=== PATIENT | female | born 1945 | race American Indian/Alaskan Native ===

== ENCOUNTER 2017-04-18 11:12 | Outpatient (CLI) | payer MEDICARE ==
[2017-04-18 10:25] LABS: Hematocrit 34.1 % (30.3-42.9); Hemoglobin 10.9 gm/dl (10.1-14.3); Mean Corpuscular HGB Conc 32 % (30-34); Mean Corpuscular Hemoglobin 27 pg (28-32); Mean Corpuscular Volume 84 fl (79-97); Platelet Count 190 K/mm3 (140-440); Red Blood Count 4.08 M/mm3 (3.65-5.03); Red Cell Distribution Width 15.2 % (13.2-15.2); White Blood Count 5.3 K/mm3 (4.5-11.0)
[2017-04-18 10:47] LABS: Alanine Aminotransferase < 5 units/L (7-56); Albumin 3.6 g/dL (3.9-5); Albumin/Globulin Ratio 1.1 %; Alkaline Phosphatase 66 units/L (35-129); Anion Gap 16 mmol/L; BUN/Creatinine Ratio 14.44; Blood Urea Nitrogen 13 mg/dL (7-17); Calcium 11.2 mg/dL (8.4-10.2); Carbon Dioxide 29 mmol/L (22-30); Chloride 100.8 mmol/L (98-107); Cholesterol 120 mg/dL (50-199); Glucose 186 mg/dL (65-100); HDL Cholesterol 43 mg/dL (40-59); LDL Cholesterol,Direct 60 mg/dL (50-130); Potassium 4.1 mmol/L (3.6-5.0); Sodium 142 mmol/L (137-145); Total Protein 6.8 g/dL (6.3-8.2); Triglycerides 89 mg/dL (2-149)
== END 2017-04-18 11:13 | disposition home or self-care (01) ==
LOC: LABHHL 11:12
PROVIDERS: ATTEND Internal Medicine
DX: E11.9 Type 2 diabetes mellitus without complications (principal); E31.9 Polyglandular dysfunction, unspecified; F32.9 Major depressive disorder, single episode, unspecified; R55 Syncope and collapse
CPT/HCPCS: 36415; 80053; 80061; 83036; 84439; 84443; 85027

== ENCOUNTER 2018-01-10 08:18 | Inpatient (IN) | payer MEDICARE ==
[2018-01-10] MEDS ORDERED: NACL 0.9% 500 ML 500 ML IV ONE (08:35)
[2018-01-10] MEDS ORDERED: TYLENOL FEEDTUBE STA (08:37)
[2018-01-10] MEDS ORDERED: NACL 0.9% 1000 ML 1,000 ML IV ONE ×3 (08:39→09:54)
[2018-01-10] MEDS ORDERED: TYLENOL PR ONE ×3 (08:40→08:54)
[2018-01-10] MEDS ORDERED: NACL 0.9% 1000 ML 1,000 ML ONE (08:40)
[2018-01-10] MEDS ORDERED: ZEMURON IV ONE ×2 (09:13→09:30)
[2018-01-10 09:27] LABS: Basophils % (Auto) 0.2 % (0.0-1.8); Eosinophils % (Auto) 0.1 % (0.0-4.3); Lymphocytes # (Auto) 1.7 K/mm3 (1.2-5.4); Lymphocytes % (Auto) 15.2 % (13.4-35.0); Mean Corpuscular HGB Conc 30 % (30-34); Mean Corpuscular Hemoglobin 27 pg (28-32); Mean Corpuscular Volume 89 fl (79-97); Monocytes # (Auto) 0.4 K/mm3 (0.0-0.8); Monocytes % (Auto) 3.7 % (0.0-7.3); Platelet Count 120 K/mm3 (140-440); Red Blood Count 4.66 M/mm3 (3.65-5.03); Red Cell Distribution Width 17.2 % (13.2-15.2)
[2018-01-10] MEDS: LEVOPHED DRIP 4 MG/NS 250 ML 4 MG/250 ML BAG IV SCH ×2 (09:35→14:41)
[2018-01-10] MEDS ORDERED: VASELINE LIP THERAPY TP PRN (09:38)
[2018-01-10] MEDS ORDERED: ARTIFICIAL TEARS OPHTH OINT OU PRN (09:38)
[2018-01-10 09:44] LABS: INR 1.64 (0.87-1.13)
[2018-01-10 09:49] LABS: Creatine Kinase MB 3.5 ng/mL (0.0-4.0)
[2018-01-10 09:50] LABS: Albumin 2.9 g/dL (3.9-5); Calcium 11.1 mg/dL (8.4-10.2)
[2018-01-10 09:51] LABS: Hematocrit 41.4 % (30.3-42.9); Hemoglobin 12.5 gm/dl (10.1-14.3)
[2018-01-10] MEDS ORDERED: LEVAQUIN 750MG/150ML 750 MG/150 ML BAG IV ONE (09:56)
[2018-01-10] MEDS ORDERED: NEO-SYNEPHRINE 100 MG in NACL 0.9% 90 ML IV SCH (10:00)
[2018-01-10] MEDS ORDERED: NACL 0.9% 500 ML IV SCH (10:00)
[2018-01-10 10:01] LABS: Bacteria,Urine 2+ /HPF (Negative); Bilirubin,Urine NEG (Negative); Blood,Urine NEG (Negative); Color,Urine Yellow (Yellow); Hyaline Casts,Urine 1 /LPF; Mucus,Urine FEW /HPF; Protein,Urine <15 mg/dL mg/dL (Negative); Urobilinogen,Urine < 2.0 mg/dL (<2.0)
[2018-01-10] MEDS ORDERED: ADRENALIN 8 MG in NACL 0.9% 250ML 242 ML IV ONE (10:09)
[2018-01-10] MEDS ORDERED: HumuLIN R IV ONE (10:20)
[2018-01-10 11:08] LABS: Chol/HDL Ratio 4.93 %
--- NOTE | 2018-01-10 11:15 | History and Physical Report ---
History of Present Illness Chief complaint: Confusion History of present illness: 72 YO Female SNF Resident with HTN,Systolic CHF, DM, Dementia, Depression, Sacral Decubitus Ulcers, CVA, Malnutrition, HLD presents to ED for evaluation. Pt in stuporous and unable to provide history. Pt history taken from ED staff, EMS, and SNF staff. As per SNF staff, the patient was found to be more confused as well as unresponsive this morning. EMS was notified, and upon arrival the patient was found to be tachycardic, and hyperglycemic. Pt transported to [facility] for evaluation. Pt seen and evaluated in ED and found to have sepsis secondary to Pneumonia as well as Acute REspiratory Failure. . Pt experienced asystolic arrest in the ED. Pt treated [facility] ACLS protocol with return of perfusing cardiac rhythm. Pt intubated and placed on vent support and admitted to ICU. Pt found to have a poor prognosis. Family meeting held, and patient family elects to have comfort measures [facility] care. Hospice team notified in ED. Past History Past Medical History: CAD, diabetes, heart failure, renal failure Past Surgical History: Other (Pacemaker, PEG) Social history: . denies: smoking, alcohol abuse, prescription drug abuse Family history: diabetes, hypertension Medications and Allergies Allergies Allergy/AdvReac Type Severity Reaction Status Date / Time amoxicillin Allergy Hives Verified 12/28/17 15:21 gluten Allergy Hives Verified 12/28/17 15:21 peanut Allergy Hives Verified 12/28/17 15:21 Home Medications Medication Instructions Recorded Confirmed Last Taken Type ISOSORBIDE MONOnitrate [Imdur ER] 30 mg PO DAILY tablet 01/03/18 01/10/18 Unknown Rx hydrALAZINE [Apresoline TAB] 25 mg PO Q8HR #90 tablet 01/03/18 01/10/18 Unknown Rx ALBUTEROL NEB's [Proventil] 2.5 mg IH Q6H PRN 01/10/18 01/10/18 Unknown History Atorvastatin Calcium [Lipitor] 20 mg PO HS 01/10/18 01/10/18 Unknown History Carvedilol [Coreg] 50 mg PO BID 01/10/18 01/10/18 Unknown History Clopidogrel Bisulfate [Plavix] 75 mg PO QDAY 01/10/18 01/10/18 Unknown History Lisinopril [Zestril] 40 mg PO QDAY 01/10/18 01/10/18 Unknown History Active Meds: Active Medications Hydrophilic Ointment (Vaseline Lip Therapy) 1 applic TP Q2HR PRN PRN Reason: Dry Lips Norepinephrine (Levophed Drip 4 Mg/Ns 250 Ml) 4 mg in 250 mls @ 7.5 mls/hr IV TITR DANIEL; Protocol Last Titration: 01/10/18 09:50 Dose: 30 mcg/min, 112.5 mls/hr Phenylephrine HCl 100 mg/ (Sodium Chloride) 100 mls @ 3 mls/hr IV TITR DANIEL; Protocol Last Titration: 01/10/18 10:52 Dose: 70 mcg/min, 4.2 mls/hr Levofloxacin/Dextrose (Levaquin 750mg/150ml) 750 mg in 150 mls @ 100 mls/hr IV ONCE ONE Stop: 01/10/18 11:25 Last Admin: 01/10/18 10:15 Dose: 100 mls/hr Epinephrine 8 mg/ Sodium (Chloride) 250 mls @ 3.75 mls/hr IV TITR ONE; Protocol Stop: 01/13/18 04:48 Last Admin: 01/10/18 10:25 Dose: 10 mcg/min, 18.75 mls/hr Multi-Ingred Cream/Lotion/Oil/Oint (Artificial Tears Ophth Oint) 1 applic OU Q4HR PRN PRN Reason: Dry Eye(s) Sodium Chloride (Nacl 0.9% 500 Ml) 1 ml IV DIRECT DANIEL Review of Systems ROS unobtainable: due to mental status Exam - Constitutional Vitals: Temp Pulse Resp BP Pulse Ox 104.5 F H 70 20 64/37 100 01/10/18 08:32 01/10/18 10:50 01/10/18 10:50 01/10/18 10:50 01/10/18 10:10 General appearance: Present: severe distress - EENT Eyes: Present: miosis ENT: poor dentition - Neck Neck: Present: supple, normal ROM - Respiratory Respiratory: bilateral: diminished, rhonchi - Cardiovascular Rhythm: irregularly irregular - Extremities Extremities: pulses symmetrical, No edema Extremity abnormal: edema Peripheral Pulses: abnormal (capillary refill greater than 3.6 seconds.) - Abdominal General gastrointestinal: Present: soft, non-distended, hypoactive bowel sounds Female genitourinary: Present: normal - Integumentary Integumentary: Present: clear, dry, clammy, decreased turgor - Musculoskeletal Musculoskeletal: generalized weakness - Psychiatric Psychiatric: no intact judgment & insight, no memory intact - Neurologic Neurologic: no gait normal Results - Labs CBC & Chem 7: 01/10/18 09:14 01/10/18 09:14 Labs: Abnormal lab results 01/10/18 01/10/18 01/10/18 Range/Units 08:35 09:12 09:14 MCH 27 L (28-32) pg RDW 17.2 H (13.2-15.2) % Plt Count 120 L (140-440) K/mm3 Seg Neutrophils % 80.8 H (40.0-70.0) % Seg Neutrophils # 8.8 H (1.8-7.7) K/mm3 PT 20.4 H (12.2-14.9) Sec. INR 1.64 H (0.87-1.13) VBG pH (7.320-7.420) Sodium (137-145) mmol/L Chloride (98-107) mmol/L Carbon Dioxide (22-30) mmol/L BUN (7-17) mg/dL Creatinine (0.7-1.2) mg/dL Glucose (65-100) mg/dL POC Glucose (70-105) Lactic Acid (0.7-2.0) mmol/L Calcium (8.4-10.2) mg/dL AST (5-40) units/L ALT (7-56) units/L Troponin T (0.00-0.029) ng/mL Albumin (3.9-5) g/dL Triglycerides (2-149) mg/dL HDL Cholesterol (40-59) mg/dL Urine WBC (Auto) 27.0 H (0.0-6.0) /HPF 01/10/18 01/10/18 01/10/18 Range/Units 09:14 09:14 09:14 MCH (28-32) pg RDW (13.2-15.2) % Plt Count (140-440) K/mm3 Seg Neutrophils % (40.0-70.0) % Seg Neutrophils # (1.8-7.7) K/mm3 PT (12.2-14.9) Sec. INR (0.87-1.13) VBG pH 7.302 L (7.320-7.420) Sodium 169 H* (137-145) mmol/L Chloride 125.0 H (98-107) mmol/L Carbon Dioxide 21 L (22-30) mmol/L BUN 92 H (7-17) mg/dL Creatinine 4.1 H (0.7-1.2) mg/dL Glucose 446 H (65-100) mg/dL POC Glucose (70-105) Lactic Acid 5.40 H* (0.7-2.0) mmol/L Calcium 11.1 H (8.4-10.2) mg/dL AST 127 H (5-40) units/L ALT 89 H (7-56) units/L Troponin T (0.00-0.029) ng/mL Albumin 2.9 L (3.9-5) g/dL Triglycerides (2-149) mg/dL HDL Cholesterol (40-59) mg/dL Urine WBC (Auto) (0.0-6.0) /HPF 01/10/18 01/10/18 Range/Units 09:14 09:32 MCH (28-32) pg RDW (13.2-15.2) % Plt Count (140-440) K/mm3 Seg Neutrophils % (40.0-70.0) % Seg Neutrophils # (1.8-7.7) K/mm3 PT (12.2-14.9) Sec. INR (0.87-1.13) VBG pH (7.320-7.420) Sodium (137-145) mmol/L Chloride (98-107) mmol/L Carbon Dioxide (22-30) mmol/L BUN (7-17) mg/dL Creatinine (0.7-1.2) mg/dL Glucose (65-100) mg/dL POC Glucose 365 H (70-105) Lactic Acid (0.7-2.0) mmol/L Calcium (8.4-10.2) mg/dL AST (5-40) units/L ALT (7-56) units/L Troponin T 0.701 H* (0.00-0.029) ng/mL Albumin (3.9-5) g/dL Triglycerides 236 H (2-149) mg/dL HDL Cholesterol 29 L (40-59) mg/dL Urine WBC (Auto) (0.0-6.0) /HPF Assessment and Plan - Patient Problems (1) Septic shock Current Visit: Yes Status: Acute Plan to address problem: IV antibiotics, IV pressor support to maintain MAP of 60, Monitor uop q shift, serial lactic acid, CBC, CMP, blood cultures, urinalysis, Admit to ICU. After family meeting, Pt family elects to initiate comfort care measures, and transfer the patient to inpatient hospice care. The high probability of a clinically significant, sudden or life threatening deterioration of the [cardaic, renal, pulmonary, ] system(s) required my full and direct attention, intervention and personal management. The aggregate critical care time was [65] minutes. This time is in addition to time spent performing reported procedures but includes the following: [x] Data Review and interpretation [x] Patient assessment and monitoring of vital signs [x] Documentation [x] Medication orders and management (2) Respiratory failure Current Visit: Yes Status: Acute Qualifiers: Chronicity: acute Respiratory failure complication: hypoxia Qualified Code(s): J96.01 - Acute respiratory failure with hypoxia Plan to address problem: Wean vent as tolerated, Pulmonary consulted, daily ABG, sedation, holiday, (3) Pneumonia Current Visit: Yes Status: Acute Qualifiers: Pneumonia type: aspiration pneumonia Laterality: left Lung location: upper lobe of lung Plan to address problem: Suspected Aspiration Pneumonia: IV abx, nebulizer therapy, poor prognosis. Pt family elects to have hospice care. (4) Cardiac arrest Current Visit: Yes Status: Acute (5) ARF (acute renal failure) Current Visit: Yes Status: Acute Qualifiers: Acute renal failure type: with acute tubular necrosis Qualified Code(s): N17.0 - Acute kidney failure with tubular necrosis Plan to address problem: IVF resuscitation, monitor uop q shift, (6) DVT prophylaxis Current Visit: Yes Status: Acute
[2018-01-10] MEDS ORDERED: NACL 0.9% 1000 ML IV ONE (11:16)
[2018-01-10] MEDS ORDERED: SODIUM CHLORIDE FLUSH SYRINGE 10 ML IV PRN (11:16)
[2018-01-10] MEDS ORDERED: VANCOMYCIN VIAL IV ONE (11:16)
[2018-01-10] MEDS ORDERED: PROVENTIL IH PRN (11:16)
--- NOTE | 2018-01-10 11:16 | Emergency Department Report ---
HPI - General Chief Complaint: Arrhythmia/Palpitations Time Seen by Provider: 01/10/18 09:05 - HPI HPI: 72-year-old female presents to the emergency department by EMS from her ECF with complaint of altered mental status, tachycardia, fever. She has a past medical history of CHF, Alzheimer's dementia, sacral ulcers, previous CVA, diabetes, chronic kidney disease, cardiomyopathy with pacemaker, coronary artery disease. Allegedly the patient is usually verbal at baseline despite her dementia. At least since this morning the patient has been nonverbal and mostly unresponsive. EMS call stated that there was a 72-year- old female coming in with a heart rate of 180 and a blood sugar greater than 400. She did not receive any treatment in route. I asked for a EKG to be sent over and it showed the patient to be in atrial fibrillation with RVR. A. fib was not a condition previous listed on her ECF paperwork but her daughter has since come bedside and says that she does have some history of this atrial fibrillation. The patient herself is still currently altered and critically ill and therefore is a poor historian. ED Past Medical Hx - Past Medical History Hx Hypertension: Yes Hx CVA: Yes Hx Congestive Heart Failure: Yes Hx Diabetes: Yes Hx Renal Disease: Yes (CKD) Hx Psychiatric Treatment: Yes (alzheimers, depressive disorder,) Hx Dementia: Yes Additional medical history: dysphagia, pressure ulcer sacral region, protein, calorie malnutrition, ahterosclerotic heart disease, angina, cellulitis of abdominal wall, frequent UTI, MRSA anemia, hyperlipidema, - Surgical History Hx Pacemaker: Yes Additional Surgical History: s/p g tube removal - Social History Smoking Status: Unknown if ever smoked - Medications Home Medications: Home Medications Medication Instructions Recorded Confirmed Last Taken Type ISOSORBIDE MONOnitrate [Imdur ER] 30 mg PO DAILY tablet 01/03/18 01/10/18 Unknown Rx hydrALAZINE [Apresoline TAB] 25 mg PO Q8HR #90 tablet 01/03/18 01/10/18 Unknown Rx ALBUTEROL NEB's [Proventil] 2.5 mg IH Q6H PRN 01/10/18 01/10/18 Unknown History Atorvastatin Calcium [Lipitor] 20 mg PO HS 01/10/18 01/10/18 Unknown History Carvedilol [Coreg] 50 mg PO BID 01/10/18 01/10/18 Unknown History Clopidogrel Bisulfate [Plavix] 75 mg PO QDAY 01/10/18 01/10/18 Unknown History Lisinopril [Zestril] 40 mg PO QDAY 01/10/18 01/10/18 Unknown History ED Review of Systems ROS: Stated complaint: RAPID HEART RATE Other details as noted in HPI Comment: Unobtainable due to pts medical conditions Physical Exam - Physical Exam Vital Signs: Vital Signs 01/10/18 01/10/18 01/10/18 08:16 08:20 08:30 Temperature Pulse Rate 164 H 160 H 164 H Respiratory 40 H 41 H 41 H Rate Blood Pressure O2 Sat by Pulse 99 99 Oximetry 01/10/18 01/10/18 01/10/18 08:32 08:43 08:51 Temperature 104.5 F H Pulse Rate 163 H 179 H 185 H Respiratory 36 H 45 H 43 H Rate Blood Pressure 80/40 86/34 O2 Sat by Pulse 100 99 Oximetry 01/10/18 01/10/18 01/10/18 08:58 09:01 09:11 Temperature Pulse Rate 173 H 178 H 158 H Respiratory 41 H 18 Rate Blood Pressure 147/94 114/86 O2 Sat by Pulse 100 46 L Oximetry 01/10/18 01/10/18 01/10/18 09:21 09:30 09:35 Temperature Pulse Rate 114 H 112 H Respiratory 35 H 15 Rate Blood Pressure 95/23 183/110 115/55 O2 Sat by Pulse 100 99 99 Oximetry 01/10/18 01/10/18 01/10/18 09:41 09:51 10:01 Temperature Pulse Rate 71 63 64 Respiratory 20 20 101 H Rate Blood Pressure 62/42 51/20 114/26 O2 Sat by Pulse Oximetry 01/10/18 01/10/18 01/10/18 10:10 10:20 10:30 Temperature Pulse Rate 71 68 67 Respiratory 20 20 21 Rate Blood Pressure 113/42 47/28 58/34 O2 Sat by Pulse 100 Oximetry 01/10/18 01/10/18 10:41 10:50 Temperature Pulse Rate 72 70 Respiratory 20 20 Rate Blood Pressure 55/32 64/37 O2 Sat by Pulse Oximetry Physical Exam: GENERAL: Patient is ill-appearing and unresponsive. HENT: Normocephalic. Atraumatic. Patient has moist mucous membranes. EYES: Pupils equal reactive to light bilaterally. NECK: Supple. Trachea is midline. CHEST/LUNGS: Coarse breath sounds throughout the chest. There is tachypnea with some accessory muscle use. There is respiratory distress noted. HEART/CARDIOVASCULAR: Irregular rate with significant tachycardia ABDOMEN: Abdomen is soft.. Patient has normal bowel sounds. SKIN: Skin is warm and dry. NEURO: The patient is altered and unresponsive. She will move slightly to painful stimuli. She has a slight gag reflex. MUSCULOSKELETAL: There is no obvious deformity. There is no evidence of acute injury. ED Course Vital Signs 01/10/18 01/10/18 01/10/18 08:16 08:20 08:30 Temperature Pulse Rate 164 H 160 H 164 H Respiratory 40 H 41 H 41 H Rate Blood Pressure O2 Sat by Pulse 99 99 Oximetry 01/10/18 01/10/18 01/10/18 08:32 08:43 08:51 Temperature 104.5 F H Pulse Rate 163 H 179 H 185 H Respiratory 36 H 45 H 43 H Rate Blood Pressure 80/40 86/34 O2 Sat by Pulse 100 99 Oximetry 01/10/18 01/10/18 01/10/18 08:58 09:01 09:11 Temperature Pulse Rate 173 H 178 H 158 H Respiratory 41 H 18 Rate Blood Pressure 147/94 114/86 O2 Sat by Pulse 100 46 L Oximetry 01/10/18 01/10/18 01/10/18 09:21 09:30 09:35 Temperature Pulse Rate 114 H 112 H Respiratory 35 H 15 Rate Blood Pressure 95/23 183/110 115/55 O2 Sat by Pulse 100 99 99 Oximetry 01/10/18 01/10/18 01/10/18 09:41 09:51 10:01 Temperature Pulse Rate 71 63 64 Respiratory 20 20 101 H Rate Blood Pressure 62/42 51/20 114/26 O2 Sat by Pulse Oximetry 01/10/18 01/10/18 01/10/18 10:10 10:20 10:30 Temperature Pulse Rate 71 68 67 Respiratory 20 20 21 Rate Blood Pressure 113/42 47/28 58/34 O2 Sat by Pulse 100 Oximetry 01/10/18 01/10/18 10:41 10:50 Temperature Pulse Rate 72 70 Respiratory 20 20 Rate Blood Pressure 55/32 64/37 O2 Sat by Pulse Oximetry - Central Line Placement Right Femoral Consent Obtained: emergent situation Time Out Performed: Yes Patient Placed on Monitor/Pulse Ox: Yes MD Prep: mask, gown, gloves Central Line Prep: Povidone-Iodine 1%, Chlorhexidine scrub Ultrasound Used for Placement: Yes Central Line Lumen Inserted: triple Bloods Obtained for Lab: Yes Central Line Position: good blood return, all ports aspirated, flus, sutured in place with nyl Dressing Applied: Tegaderm Patient Tolerated Procedure: well Complications: none - Intubation Time Out Performed: Yes Sedative: none Paralytic: Rocuronium Mg Given: 80 Laryngoscope: Mathew Size: 3 ET Tube Size: 7.5 Tube Secured Depth (cm): 24 Tube Secured Location: lips Tube Placement Confirmation: visualized tube passing t, equal breath sounds bilat Patient Tolerated Procedure: well Intubation Complications: none ED Medical Decision Making - Lab Data Result diagrams: 01/10/18 09:14 01/10/18 09:14 - EKG Data -: EKG Interpreted by Me - EKG Data When compared to previous EKG there are: previous EKG unavailable Interpretation: other (sinus rhythm, IVCD RBBB, T-wave inversions throughout all leads) The EMS EKG shows atrial fibrillation with RVR at a rate of 180 01/10/18 14:45 - Radiology Data Radiology results: image reviewed interpreted by me: Chest x-ray shows appropriate position of the ET tube. No pneumothorax. There are some areas of patchy infiltrates concerning for pneumonia versus edema. - Medical Decision Making Patient presented to the emergency department in atrial fibrillation with RVR, with hyperglycemia, a temperature of 104, unresponsive and altered with some signs of respiratory distress. The patient also presented with significant hypoglycemia. A right femoral CVC was placed as the patient would need pressors and based on her critical condition and I expect that she would need multiple other medications given as well. Around the same time, the patient was intubated secondary to her coarse breath sounds, and signs of respiratory distress. There were no particular complications noted with these procedures. However, shortly afterwards the patient began having worsening hypotension and her pulses were no longer palpable and heart sounds could not be auscultated, and the patient appeared to go into PEA. ACLS protocol was started she received 5 total rounds of ACLS protocol including chest compressions, epinephrine, sodium bicarbonate, calcium, magnesium. In the middle of these 5 rounds, the patient appeared to go in polymorphic V. tach and one episode of V. fib. She received 2 different fibrillations at 200 J. The polymorphic V. tach had a torsades appearance so she was given the knees and as well. At the end of the fifth around, the patient had a return of spontaneous circulation. She was started on Levophed on top of the IV fluid resuscitation but her blood pressure still remained very low with a systolic in the 60s. It was about this time that the patient's daughter showed up and she was updated about everything that had been done thus far and her critical nature. Shortly after this, the patient once again appeared to lose her pulse and ACLS protocol was once again started. This time we are able to get a return of spontaneous circulation with and one round. The patient still is dealing with significant hypotension. Epinephrine drip arrived from the pharmacy and was started and he does appear to allow the patient to maintain some perfusion but she still has significant hypotension. She has already received 3 L of IV fluid and does have a history of CHF but appears currently septic. All of the lab and imaging results were discussed with the patient's family who have all gathered and are now currently bedside. They still have not made any decisions on CODE STATUS so for the time being the patient is a full code. The patient has been accepted for admission to the ICU by Dr. Foote. - Differential Diagnosis Sepsis, VA, Pneumonia, UTI, DKA Critical Care Time: Yes Critical care time in (mins) excluding proc time.: 80 Critical care attestation.: If time is entered above; I have spent that time in minutes in the direct care of this critically ill patient, excluding procedure time. Critical care time was spent on this patient during her initial evaluation, multiple re-evaluations , supervision of 2 different ACLS protocols/codes, ordering and interpretation of labs and imaging, titration and management of multiple antihypertensive drips , discussion with the patient's family, discussion with the admitting hospitalist. This does not include the procedure time to do a central line or intubation. Critical Care Time: 80 minutes ED Disposition Clinical Impression: Septic shock, Cardiac arrest, ED (acute kidney injury), Hyperglycemia, Lactic acidosis, Elevated troponin I level UTI (urinary tract infection) Qualifiers: Urinary tract infection type: acute cystitis Hematuria presence: without hematuria Qualified Code(s): N30.00 - Acute cystitis without hematuria Uncontrolled diabetes mellitus Qualifiers: Diabetes mellitus type: type 2 Diabetes mellitus oysterman insulin use: without halfway use Diabetes mellitus complication status: with hyperglycemia Qualified Code(s): E11.65 - Type 2 diabetes mellitus with hyperglycemia Hypotension Qualifiers: Hypotension type: unspecified hypotension type Qualified Code(s): I95.9 - Hypotension, unspecified Disposition: 09 OP ADMIT IP TO THIS HOSP Is pt being admited?: Yes Condition: Critical Time of Disposition: 14:55
--- NOTE | 2018-01-10 11:21 | XRay Report ---
Portable chest: ET tube position. The lungs are clear and mildly hyperlucent predominantly in the right side. There may be a small infiltrate in the left upper lobe. The heart is normal in size and there is no vascular congestion. A bipolar pacemaker is present. An endotracheal tube is in good position approximately 3 cm above the steve. No prior exam for comparison. Impression: 1. Well-positioned ET tube. 2. Chronic lung disease. 3. Possible left upper lobe pneumonia.
[2018-01-10] MEDS ORDERED: VANCOMYCIN PHARMACY TO DOSE IV SCH (12:00)
[2018-01-10] MEDS ORDERED: VANCOMYCIN 1,250 MG in NACL 0.9% 250ML 250 ML IV ONE (12:15)
--- NOTE | 2018-01-10 12:58 | Consultation ---
History of Present Illness Consult date: 01/10/18 Requesting physician: FERNANDO RUSSELL History of present illness: PULMONARY/CCM CONSULT NOTE (Full dictation # [id number]) Please see dictated notes for full details Medications and Allergies Allergies Allergy/AdvReac Type Severity Reaction Status Date / Time amoxicillin Allergy Hives Verified 12/28/17 15:21 gluten Allergy Hives Verified 12/28/17 15:21 peanut Allergy Hives Verified 12/28/17 15:21 Home Medications Medication Instructions Recorded Confirmed Last Taken Type ISOSORBIDE MONOnitrate [Imdur ER] 30 mg PO DAILY tablet 01/03/18 01/10/18 Unknown Rx hydrALAZINE [Apresoline TAB] 25 mg PO Q8HR #90 tablet 01/03/18 01/10/18 Unknown Rx ALBUTEROL NEB's [Proventil] 2.5 mg IH Q6H PRN 01/10/18 01/10/18 Unknown History Atorvastatin Calcium [Lipitor] 20 mg PO HS 01/10/18 01/10/18 Unknown History Carvedilol [Coreg] 50 mg PO BID 01/10/18 01/10/18 Unknown History Clopidogrel Bisulfate [Plavix] 75 mg PO QDAY 01/10/18 01/10/18 Unknown History Lisinopril [Zestril] 40 mg PO QDAY 01/10/18 01/10/18 Unknown History Active Meds: Active Medications Albuterol (Proventil) 2.5 mg IH Q3HRT PRN PRN Reason: Shortness Of Breath Hydrophilic Ointment (Vaseline Lip Therapy) 1 applic TP Q2HR PRN PRN Reason: Dry Lips Norepinephrine (Levophed Drip 4 Mg/Ns 250 Ml) 4 mg in 250 mls @ 7.5 mls/hr IV TITR DANIEL; Protocol Last Titration: 01/10/18 09:50 Dose: 30 mcg/min, 112.5 mls/hr Phenylephrine HCl 100 mg/ (Sodium Chloride) 100 mls @ 3 mls/hr IV TITR DANIEL; Protocol Last Titration: 01/10/18 10:52 Dose: 70 mcg/min, 4.2 mls/hr Epinephrine 8 mg/ Sodium (Chloride) 250 mls @ 3.75 mls/hr IV TITR ONE; Protocol Stop: 01/13/18 04:48 Last Admin: 01/10/18 10:25 Dose: 10 mcg/min, 18.75 mls/hr Levofloxacin/Dextrose (Levaquin 500mg/100ml) 500 mg in 100 mls @ 66.667 mls/hr IV Q48H DANIEL; Protocol Vancomycin HCl 1,250 mg/ (Sodium Chloride) 262.5 mls @ 131.25 mls/hr IV ONCE ONE Stop: 01/10/18 14:14 Last Admin: 01/10/18 12:45 Dose: 131.25 mls/hr Multi-Ingred Cream/Lotion/Oil/Oint (Artificial Tears Ophth Oint) 1 applic OU Q4HR PRN PRN Reason: Dry Eye(s) Sodium Chloride (Nacl 0.9% 500 Ml) 1 ml IV DIRECT DANIEL Sodium Chloride (Sodium Chloride Flush Syringe 10 Ml) 10 ml IV BID DANIEL Sodium Chloride (Sodium Chloride Flush Syringe 10 Ml) 10 ml IV PRN PRN PRN Reason: LINE FLUSH Vancomycin HCl (Vancomycin Pharmacy To Dose) 1 each IV PKCONSULT DANIEL Physical Examination Vital signs: Vital Signs Pulse Resp 164 H 40 H 01/10/18 08:16 01/10/18 08:16 Results - Laboratory Findings CBC and BMP: 01/10/18 09:14 01/10/18 09:14 PT/INR, D-dimer PT 20.4 Sec. (12.2-14.9) H 01/10/18 09:12 INR 1.64 (0.87-1.13) H 01/10/18 09:12 Abnormal lab findings: Abnormal Labs 01/10/18 01/10/18 01/10/18 08:35 09:12 09:14 MCH 27 L RDW 17.2 H Plt Count 120 L Seg Neutrophils % 80.8 H Seg Neutrophils # 8.8 H PT 20.4 H INR 1.64 H VBG pH Sodium Chloride Carbon Dioxide BUN Creatinine Glucose POC Glucose Lactic Acid Calcium AST ALT Troponin T NT-Pro-B Natriuret Pep Albumin Triglycerides HDL Cholesterol Urine WBC (Auto) 27.0 H 01/10/18 01/10/18 01/10/18 09:14 09:14 09:14 MCH RDW Plt Count Seg Neutrophils % Seg Neutrophils # PT INR VBG pH 7.302 L Sodium 169 H* Chloride 125.0 H Carbon Dioxide 21 L BUN 92 H Creatinine 4.1 H Glucose 446 H POC Glucose Lactic Acid 5.40 H* Calcium 11.1 H AST 127 H ALT 89 H Troponin T NT-Pro-B Natriuret Pep Albumin 2.9 L Triglycerides HDL Cholesterol Urine WBC (Auto) 01/10/18 01/10/18 01/10/18 09:14 09:32 10:43 MCH RDW Plt Count Seg Neutrophils % Seg Neutrophils # PT INR VBG pH Sodium Chloride Carbon Dioxide BUN Creatinine Glucose POC Glucose 365 H Lactic Acid 12.50 H* Calcium AST ALT Troponin T 0.701 H* NT-Pro-B Natriuret Pep 03436 H Albumin Triglycerides 236 H HDL Cholesterol 29 L Urine WBC (Auto) 01/10/18 11:00 MCH RDW Plt Count Seg Neutrophils % Seg Neutrophils # PT INR VBG pH Sodium Chloride Carbon Dioxide BUN Creatinine Glucose POC Glucose Lactic Acid 13.10 H* Calcium AST ALT Troponin T NT-Pro-B Natriuret Pep Albumin Triglycerides HDL Cholesterol Urine WBC (Auto)
[2018-01-10] MEDS ORDERED: NACL 0.9% 1000 ML 2,000 ML IV ONE (14:30)
--- NOTE | 2018-01-10 14:44 | Consultation ---
PULMONARY CRITICAL CARE CONSULT NOTE CONSULTING PHYSICIAN: Dr. Foote. REASON FOR CONSULTATION: Severe sepsis status post cardiac arrest. CHIEF COMPLAINT AND HISTORY OF PRESENT ILLNESS: The patient is a 72-year-old -[place] female with past medical history significant amongst other things for diagnoses of Alzheimer dementia, multiple sacral and other decubitus, who was brought into the Emergency Room with complaints of altered mental status, tachycardia, fever. She has significant baseline dementia. Upon initial arrival in the Emergency Room, the rhythm was atrial fibrillation with RVR which appears to be about new onset. Since getting into the Emergency Room, she has had multiple cardiac arrests. According to her nurse, about 3 cardiac arrests. We are asked to assist with her management. When I stopped by to see her, she was lying unresponsive on the mechanical ventilator. She was on multiple vasopressors. She was on I believe Levophed maxed out at 30 mcg per minute. She was on epinephrine drip at 10 mcg per minute and she was on Norman-Synephrine drip at 70 mcg per minute. Do not have any history of vomiting or overt aspiration. She is not a current smoker. No family is in the room at the moment. The above is as much of the history of presentation as I have. PAST MEDICAL HISTORY: Hypertension, cerebrovascular accident in the past, history of congestive heart failure, history of diabetes, history of chronic kidney disease, history of Alzheimer dementia. She has a history of oropharyngeal dysphagia, [id number] protein calorie malnutrition, prior cellulitis of the abdominal wall, history of multiple UTIs, and hyperlipidemia. PAST SURGICAL HISTORY: She has a pacemaker inserted. She had a G-tube that reportedly has been removed. MEDICATIONS: She was on at the time I stopped by to see her, according to the medication administration record included the following: Albuterol 2.5 mg nebulized q.3 hours p.r.n. She was on the vasopressors as mentioned above, Levaquin 500 mg IV q.48 hours. Vancomycin, she received 1.25 grams IV x 1. ALLERGIES: AMOXICILLIN, GLUTEN, PEANUTS. Nature of this allergy is unknown. DIET: Cachectic looking lady, acute weight loss or gain history is unknown. FAMILY AND SOCIAL HISTORY: At this point, it is unclear if the patient came from home or came from a alf. She is not a current smoker. No drinking. No illicit drug use or abuse. Remote history is unknown. REVIEW OF SYSTEMS: Unobtainable secondary to patient's medical and mental condition. Since she has been here, no gross hematochezia or melena, no gross hematuria, no bloody ET tube secretions. No witnessed seizures. Review of systems is otherwise unobtainable or as in the body of the history above. PHYSICAL EXAMINATION: VITAL SIGNS: At presentation in the Emergency Room, she had a temperature of 104.5 degrees Fahrenheit rectally, pulse of 164, respiratory rate of 40, blood pressure was 80/40, oxygen sats were 99%, inspired oxygen concentration was not recorded. GENERAL: Cachectic-looking, elderly-looking -[place] woman, looks her stated age, normocephalic, atraumatic with temporal wasting, intubated, mostly unresponsive. HEAD, EYES, EARS, NOSE AND THROAT: She is anicteric. No conjunctival erythema. Endotracheal tube is at the lips, taped at 22 cm at the lips. No thyromegaly, no gross jugular venous distention. She has temporal wasting. No palpable lymph nodes in the supraclavicular or submandibular lymph node chains. Oropharynx is dry. LUNGS: Auscultation of both lung díaz revealed scant rhonchi bilaterally, but good bilateral breath sounds, otherwise no wheezing. HEART: Heart sounds 1 and 2 are heard. They were regular in rate and rhythm at the time of my evaluation. No rubs or murmurs. ABDOMEN: Soft, flat. Bowel sounds are positive. Does not appear tender. It is scaphoid. EXTREMITIES: Without overt digital clubbing, cyanosis. No pedal edema. Dorsalis pedis pulses are weakly palpable bilaterally. SKIN: The skin is of poor turgor. She has a decubitus ulcer as mentioned above, otherwise no overt cellulitis that I can see. NEUROLOGIC: Pupils are equal, round, about 4 mm, sluggishly reactive to light. Extraocular muscle movements could not be observed. She was not exhibiting any spontaneous movements of her extremities at the time I saw her. LABORATORY AND IMAGING DATA: From my review are as follows: White cell count 10,900, hemoglobin 12.5, hematocrit 41.4, platelet count 120. No band forms. INR 1.64. Arterial blood gas showed a pH of 7.31, pCO2 of 35, pO2 of 512. That was on the assist control mode of ventilation, tidal volumes 450, rate of 18, PEEP of 5 on 100% FiO2. Serum sodium 169, potassium 4.0, chloride 125, bicarbonate 21, BUN was 92, creatinine 4.1, glucose 365. Lactic acid level 13.10. AST 127, ALT 89. Troponin was up at 0.70. BNP was elevated. Albumin was 2.9. Otherwise, liver function tests essentially as mentioned above. Urinalysis, large leukocyte esterase, 27 white cells per high power field. Blood cultures, no growth to date. Chest x-ray has been reviewed. I have also reviewed the radiologist's interpretation and I do agree with it. ET tube is in good position at the lower level of the clavicular head. There appears to be a left upper lobe infiltrate that might be a slowly developing. There may be implanted cardiac devices in the left upper anterior chest wall. No pneumothorax, no gross rib fractures that I can see. ASSESSMENT: 1. Severe sepsis with shock. 2. Acute respiratory failure, on mechanical ventilator support. 3. Acute on chronic encephalopathy. 4. Adult failure to thrive. 5. Severe lactic acidosis. 6. Hypernatremia. 7. Hyperglycemia or poorly controlled diabetes. 8. Elevated serum transaminases. 9. Acute coronary syndrome. 10. Iollcnds-cb-eppije protein calorie malnutrition. 11. Urinary tract infection. 12. Oropharyngeal dysphagia. PLAN: Continue current mechanical ventilatory settings, full AC support acutely. Aspiration precautions will be maintained. Ventilator-associated pneumonia bundle will be addressed daily. Bronchodilators will be scheduled in the short term p.r.n. thereafter. She is severely septic and will still benefit from further volume resuscitation, I will bolus her 1 liter of normal saline at this point and then running a second bag at 250 mL per hour. We will continue to wean vasopressors to keep mean arterial pressures greater than or equal to over 65 mmHg, especially in light of the renal failure, I will be introducing vasopressin and go ahead and try and wean off the other vasopressors. Magnesium and phosphorus levels will also be ordered. Nephrology evaluation will be in order. Glycemic control will be via sliding scale insulin acutely and then we will add long-acting insulin. She remains a full code at this point, the attending is discussing further care with the family. A CRP level will be ordered. I noted that we do not have significant leukocytosis. We will see what the CRP says and try and use this to deescalate antibiotics. Lactic acid levels will be trended. Enteral nutrition will be the feeding modality of choice, a feeding tube will be placed. Trickle feeding will be started. She will be also started on GI prophylaxis. DVT prophylaxis will also be introduced. Flu and pneumonia vaccination will be per protocol. Thank you very much for the consult. We will follow along and make further recommendations as picture progresses/becomes clearer. She is critically ill on life-sustaining interventions including mechanical ventilator support at high risk for further deterioration including . At this time, I have spent about 40-45 minutes of critical care time without overlap excluding any procedural time that may be necessary. JOB# [id number] SHARRI/TAMMY
[2018-01-10] MEDS ORDERED: SODIUM CHLORIDE FLUSH SYRINGE 10 ML IV SCH (22:00)
[2018-01-10] MEDS ORDERED: HEPARIN SUB-Q SCH (22:00)
--- NOTE | 2018-01-11 07:14 | Event Note ---
Date: 01/10/18 Pt discharged to [facility]osp[facility]. Awaiting transport.
--- NOTE | 2018-01-11 09:27 | XRay Report ---
AP CHEST :01/11/18 CLINICAL: Intubated.Follow up respiratory failure. COMPARISON:Previous day. FINDINGS: The endotracheal tube is in satisfactory position. Pacemaker leads in heart. The heart is normal size. Normal pulmonary vessels. The lungs are normally expanded and clear. Mild left upper lobe lung opacities appear to have resolved. However, the pacemaker obscures a portion of the left upper lobe. No pneumothorax. IMPRESSION: Interval improvement with resolution or near complete resolution of left upper lobe opacities.
[2018-01-11] MEDS ORDERED: PEPCID IV SCH (10:00)
[2018-01-11] MEDS ORDERED: LEVAQUIN 750MG/150ML 750 MG/150 ML BAG IV SCH (10:00)
[2018-01-11 10:48] VITALS: BP 115/78
[2018-01-12] MEDS ORDERED: LEVAQUIN 500MG/100ML 500 MG/100 ML BAG IV SCH (10:00)
[2018-01-12] MEDS ORDERED: CORDARONE IV ONE (10:48)
[2018-01-12] MEDS ORDERED: SODIUM BICARBONATE IV ONE (10:48)
[2018-01-12] MEDS ORDERED: ADRENALIN ONE (10:48)
[2018-01-12] MEDS ORDERED: MAGNESIUM SULFATE ONE (10:48)
[2018-01-12] MEDS ORDERED: CALCIUM CHLORIDE IV ONE (10:48)
== END 2018-01-11 11:41 | disposition hospice, inpatient (51) | DRG 871 ==
LOC: ED 08:18 → CC1 11:16
PROVIDERS: ADMIT Internal Medicine; ATTEND Internal Medicine
PROC: 4A033R1 Measurement of Arterial Saturation, Peripheral, Percutaneous Approach (ICD-10-PCS; principal; 2018-01-10)
PROC: 5A1945Z Respiratory Ventilation, 24-96 Consecutive Hours (ICD-10-PCS; 2018-01-10)
PROC: 0BH17EZ Insertion of Endotracheal Airway into Trachea, Via Natural or Artificial Opening (ICD-10-PCS; 2018-01-10)
PROC: 06HY33Z Insertion of Infusion Device into Lower Vein, Percutaneous Approach (ICD-10-PCS; 2018-01-10)
DX: A41.9 Sepsis, unspecified organism (principal); R65.21 Severe sepsis with septic shock; I46.9 Cardiac arrest, cause unspecified; J18.9 Pneumonia, unspecified organism; J96.00 Acute respiratory failure, unspecified whether with hypoxia or hypercapnia; G93.49 Other encephalopathy; E43 Unspecified severe protein-calorie malnutrition; N17.0 Acute kidney failure with tubular necrosis; I42.9 Cardiomyopathy, unspecified; N39.0 Urinary tract infection, site not specified; I50.20 Unspecified systolic (congestive) heart failure; E87.0 Hyperosmolality and hypernatremia; G30.9 Alzheimer's disease, unspecified; F02.80 Dementia in other diseases classified elsewhere, unspecified severity, without behavioral disturbance, psychotic disturbance, mood disturbance, and anxiety; E11.22 Type 2 diabetes mellitus with diabetic chronic kidney disease; I48.91 Unspecified atrial fibrillation; F32.9 Major depressive disorder, single episode, unspecified; E11.65 Type 2 diabetes mellitus with hyperglycemia; R13.12 Dysphagia, oropharyngeal phase; N18.9 Chronic kidney disease, unspecified; I25.10 Atherosclerotic heart disease of native coronary artery without angina pectoris; Z86.73 Personal history of transient ischemic attack (TIA), and cerebral infarction without residual deficits; Z95.0 Presence of cardiac pacemaker; Z87.440 Personal history of urinary (tract) infections; Z79.899 Other long term (current) drug therapy; Z68.21 Body mass index [BMI] 21.0-21.9, adult; Z83.3 Family history of diabetes mellitus; Z82.49 Family history of ischemic heart disease and other diseases of the circulatory system; Z88.1 Allergy status to other antibiotic agents; Z91.010 Allergy to peanuts; L89.159 Pressure ulcer of sacral region, unspecified stage
CPT/HCPCS: 36415; 36600; 71045; 80053; 80061; 81001; 82140; 82550; 82553; 82803; 82805; 82962; 83880; 84484; 85025; 85610; 86140; 87040; 87070; 87086; 87205; 93005; 93010; 94002; 94003; 96361; 96365; 96366; 96372; 96375; 99291; J0171; J0282; J1644; J1815; J1956; J2370; J3370; J3475; J7030; J7050